=== PATIENT | female | born 1975 | race Caucasian/White ===

== ENCOUNTER → 2020-08-11 | Outpatient (CLI) | payer OTHER ==
[~2020-08-11] MED LIST: FOLIC ACID 1 MG1 MG PO; GABAPENTIN100 MG PO; NABUMETONE500 MG PO; QUETIAPINE FUM300 MG PO; VENLAFAXINE HCL75 MG PO
== END ==
LOC: EXRD 10:57
DX: R10.31 Right lower quadrant pain (principal)
CPT/HCPCS: 76856

== ENCOUNTER 2021-05-19 07:46 | Emergency (ER) | payer OTHER ==
[2021-05-19 08:32] LABS: HEMOGLOBIN 10.7 gm/dl (12.3-15.3); RED BLOOD COUNT 4.27 M/UL (4.00-5.10)
[2021-05-19 09:18] LABS: BUN/CREATININE RATIO 24 (0-10)
[2021-05-19] MEDS ORDERED: NAPROXEN500 MG PO (10:21)
[2021-05-21] MEDS ORDERED: NAPROXEN500 MG PO (15:44)
== END 2021-05-19 10:35 | disposition home or self-care (01) ==
LOC: ER1 07:46
PROVIDERS: Physician Assistant Medical
DX: I96 Gangrene, not elsewhere classified (principal); D64.9 Anemia, unspecified
CPT/HCPCS: 73130; 80053; 85025; 85652; 86140; 99283

== ENCOUNTER → 2021-05-25 | Day surgery (SDC) | payer OTHER ==
[~2021-05-25] VITALS: Ht 172.7 cm; Wt 74.8 kg
[~2021-05-25] MED LIST changes: +NAPROXEN500 MG PO
[2021-05-25 07:16] LABS: HEMOGLOBIN 10.2 gm/dl (12.3-15.3); RED BLOOD COUNT 4.17 M/UL (4.00-5.10); WHITE BLOOD COUNT 8.6 K/UL (4.5-11.0)
[2021-05-25 07:26] LABS: BUN/CREATININE RATIO 34 (0-10)
== END | disposition home or self-care (01) ==
LOC: OR 06:36
PROVIDERS: Orthopaedic Surgery
DX: T34.531A Frostbite with tissue necrosis of right finger(s), initial encounter (principal); M90.5 Osteonecrosis in diseases classified elsewhere; X31.XXXA Exposure to excessive natural cold, initial encounter; L93.0 Discoid lupus erythematosus; F41.9 Anxiety disorder, unspecified; F32.A Depression, unspecified; Z79.899 Other long term (current) drug therapy
CPT/HCPCS: 36415; 80048; 85027; J0690; J1100; J2001; J2250; J2405; J2704; J3010; J7120